=== PATIENT | male | born 1950 | race Hispanic/Latino ===

== ENCOUNTER 2018-09-27 11:07 | Day surgery (SDC) | payer MEDICARE, OTHER ==
[~2018-09-27 11:07] MED LIST: IOPIDINE ONE; MYDRIACYL ONE; NEOFRIN ONE
[2018-09-27] MEDS ORDERED: MYDRIACYL OD ONE (11:12)
[2018-09-27] MEDS ORDERED: NEOFRIN OD ONE (11:13)
[2018-09-27] MEDS ORDERED: IOPIDINE OD ONE (11:20)
[2018-09-27 11:54] VITALS: BP 126/62
== END 2018-09-27 13:15 | disposition home or self-care (01) ==
LOC: OR 11:07
PROVIDERS: ATTEND Specialist
DX: H26.491 Other secondary cataract, right eye (principal); E78.00 Pure hypercholesterolemia, unspecified; I10 Essential (primary) hypertension; K21.9 Gastro-esophageal reflux disease without esophagitis; Z98.41 Cataract extraction status, right eye; Z98.42 Cataract extraction status, left eye; Z90.49 Acquired absence of other specified parts of digestive tract; Z72.89 Other problems related to lifestyle; Z98.890 Other specified postprocedural states; Z79.899 Other long term (current) drug therapy; Z88.8 Allergy status to other drugs, medicaments and biological substances; Z86.2 Personal history of diseases of the blood and blood-forming organs and certain disorders involving the immune mechanism

== ENCOUNTER 2018-10-04 11:27 | Day surgery (SDC) | payer MEDICARE, OTHER ==
[2018-10-04] MEDS ORDERED: IOPIDINE OS ONE ×2 (12:03→13:10)
[2018-10-04] MEDS ORDERED: NEOFRIN OS ONE (12:03)
[2018-10-04] MEDS ORDERED: MYDRIACYL OS ONE (12:03)
[2018-10-04 14:07] VITALS: BP 134/71
== END 2018-10-04 13:13 | disposition home or self-care (01) ==
LOC: OR 11:27
PROVIDERS: ATTEND Specialist
DX: H26.492 Other secondary cataract, left eye (principal); E78.00 Pure hypercholesterolemia, unspecified; I10 Essential (primary) hypertension; Z90.49 Acquired absence of other specified parts of digestive tract; Z98.890 Other specified postprocedural states; Z72.89 Other problems related to lifestyle; Z87.891 Personal history of nicotine dependence; Z79.899 Other long term (current) drug therapy; Z88.8 Allergy status to other drugs, medicaments and biological substances; Z98.41 Cataract extraction status, right eye; Z98.42 Cataract extraction status, left eye

== ENCOUNTER 2018-10-19 08:27 | Day surgery (SDC) | payer MEDICARE, OTHER ==
[2018-10-19] MEDS ORDERED: NACL 0.9% 1000 ML 1,000 ML IV SCH (09:00)
--- NOTE | 2018-10-19 09:24 | Anesthesia Consultation ---
Anesthesia Consult and Med Hx Date of service: 10/19/18 - Airway Anesthetic Teeth Evaluation: Good, Caps, Crowns ROM Head & Neck: Adequate Mental/Hyoid Distance: Adequate Mallampati Class: Class II Intubation Access Assessment: Probably Good - Pre-Operative Health Status ASA Pre-Surgery Classification: ASA2 Proposed Anesthetic Plan: MAC - Pulmonary Hx Smoking: Yes (Former) - Cardiovascular System Hx Hypertension: Yes - Central Nervous System Hx Back Pain: Yes Hx Psychiatric Problems: No - Other Systems Hx Alcohol Use: Yes (Occas) Hx Cancer: Yes (h/o colon CA (2000))
--- NOTE | 2018-10-19 09:25 | Anesthesia Day of Surgery ---
Anesthesia Day of Surgery - Day of Surgery Patient Examined: Yes Patient H&P Reviewed: Yes Patient is NPO: Yes
[2018-10-19] MEDS ORDERED: XYLOCAINE MPF 2% ONE (10:00)
[2018-10-19] MEDS ORDERED: DIPRIVAN 10 MG/ML IV ONE ×2 (10:17)
[2018-10-19] MEDS ORDERED: VERSED ONE (10:18)
--- NOTE | 2018-10-19 10:50 | Procedure Note ---
Date of procedure: 10/19/18 Pre-op diagnosis: Colon Polyp Screening/P/H/O Appendiceeal Cancer Post-op diagnosis: other (No Colon Polyps noted/Partial Colon Resection for H/O Appendiceal Cancer/Minor,Diverticuli and Minor,Internal Hemorrhoid and Colon Polyps) Procedure: Colopnoscopy with Biopsy Anesthesia: [facility] [place] Surgeon: EARNEST FORTE Estimated blood loss: minimal Pathology: list Specimen disposition: to lab Condition: stable Disposition: same day (Resume home medication but avoid aspirin,NSAID and anticoagulants for 4 days. Encourage fiber intake and follow up in 1 to 2 weeks ([phone]).)
--- NOTE | 2018-10-19 10:57 | Operative Report ---
PROCEDURE: Colonoscopy with biopsy. 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 He does have a family history of cancer, the patient's mother had colon cancer. Last colonoscopy was several years ago. Colonoscopy was done to make sure there was not any colon polyps present as part of colon polyp screening. Procedure was done after getting informed consent with MAC anesthesia. Initial rectal exam was unremarkable. Instrument was passed through the rectum onto the anastomotic site in the proximal colon, which appeared normal. The terminal ileum was intubated, showed normal mucosa. Biopsy was done from the surgical site. There was no significant or gross pathology noted around that area in the proximal colon or the transverse colon. In the descending colon, there were a few minor diverticula noted and the rectum showed some minor internal hemorrhoid on the retroverted view. There was no evidence of any colon polyps present and there was minimal bleeding from the biopsy sites. ASSESSMENT: History of appendiceal cancer, status post partial colon resection. Family history of cancer. The patient's mother had colon cancer. Minor diverticular disease, minor internal hemorrhoid. No colon polyps noted and biopsy from the surgical site. There was minimal bleeding from the biopsy sites. No complications associated with the procedure. The patient will be asked to avoid aspirin and aspirin-related products for the next few days and follow up in the office in 1-2 weeks' time. The procedure was done with the assistance of anesthesia and in the presence and with the assistance of the GI lab team, which included NARENDRA, Sheila Moraes and oscar Barnes. [facility]# [id number] KATHERINE/HARSHA
[2018-10-19 11:45] VITALS: BP 108/72
== END 2018-10-19 08:28 | disposition home or self-care (01) ==
LOC: GIO 08:27
DX: Z12.11 Encounter for screening for malignant neoplasm of colon (principal); K63.89 Other specified diseases of intestine; K57.30 Diverticulosis of large intestine without perforation or abscess without bleeding; K64.8 Other hemorrhoids; E78.00 Pure hypercholesterolemia, unspecified; I10 Essential (primary) hypertension; Z87.891 Personal history of nicotine dependence; Z98.41 Cataract extraction status, right eye; Z98.42 Cataract extraction status, left eye; Z90.49 Acquired absence of other specified parts of digestive tract; Z98.890 Other specified postprocedural states; Z93.3 Colostomy status; Z80.0 Family history of malignant neoplasm of digestive organs; Z85.038 Personal history of other malignant neoplasm of large intestine; Z79.899 Other long term (current) drug therapy; Z72.89 Other problems related to lifestyle; Z88.8 Allergy status to other drugs, medicaments and biological substances
CPT/HCPCS: 88305; J2250; J2704